=== PATIENT | female | born 1965 | race Two or more races ===

== ENCOUNTER 2023-07-22 05:33 | Day surgery (SDC) | payer OTHER ==
[~2023-07-22 05:33] MED LIST: ADULT LOW DOSE81 M1 PO; COZAAR25 MG PO; PEPCID AC20 MG PO; VISTARIL50 MG PO
== END 2023-07-22 12:05 | disposition home or self-care (01) ==
LOC: CIR.AMB 05:33
PROVIDERS: ATTEND Surgery Surgery of the Hand
DX: M19.041 Primary osteoarthritis, right hand (principal); Z88.0 Allergy status to penicillin; Z20.822 Contact with and (suspected) exposure to COVID-19

== ENCOUNTER 2024-06-01 06:07 | Day surgery (SDC) | payer OTHER ==
[2024-05-25 11:29] LABS: PH,URINE 5.5 (5.0-8.0); URINE APPEARANCE Clear; URINE BILIRRUBIN Negative (NEGATIVE); URINE BLOOD Small; URINE COLOR Yellow; URINE GLUCOSE Negative (NEGATIVE); URINE KETONE Trace (NEGATIVE); URINE LEUKOCYTE Negative; URINE NITRATE Negative; URINE PROTEIN Negative (NEGATIVE); URINE UROBILINOGEN 0.2 E.U./dl
[2024-05-25 11:32] LABS: HEMATOCRIT 35.3 % (36.0-45.00); HEMOGLOBIN 11.9 g/dL (12.0-15.00); MEAN CELL VOLUME 82.4 fL (80.00-100.00); MEAN CORPUSCULAR HEMOGLOBIN 27.8 pg (27.00-32.0); MEAN CORPUSCULAR HGB CONC 33.7 g/dl (32.0-36.0); PLATELET COUNT 316 K/uL (150-450); RED BLOOD COUNT 4.29 M/uL (4.00-6.00); RED CELL DISTRIBUTION WIDTH 14.4 % (11.5-14.5)
[2024-05-25 11:33] LABS: URINE BACTERIA 6.2 uL (0.0-1933); URINE EPITHELIAL CELLS 2.6 uL (0.0-38.8); URINE RBC 24.7 uL (0.0-20.8)
[2024-05-25 11:48] LABS: CALCIUM 9.3 mg/dL (8.5-10.1); CREATININE SERUM 0.67 mg/dL (0.55-1.02); GFR 90.09; POTASSIUM 3.77 mEq/L (3.5-5.1)
[2024-05-25 11:51] LABS: PARTIAL THROMBOPLASTIN TIME 32.8 SECONDS (22.0-34.0); PROTHROMBIN TIME 10.9 SECONDS (9.0-11.5)
[2024-05-25 12:03] LABS: URINE CAST 0.15 uL (0.0-1.40)
[~2024-06-01 06:07] MED LIST changes: +PROTONIX IV40 MG; +ZOLOFT50 MG; +klonopin
[2024-06-01] MEDS ORDERED: CLINDAMYCIN PHOSPHATE 150 MG/ML (900mg) ONE (08:44)
[2024-06-01] MEDS ORDERED: LIDOCAINE HCL 1%/EPINEPHRINE 20ML VIAL IJ ONE ×2 (10:49→11:15)
[2024-06-01] MEDS ORDERED: CLINDAMYCIN PHOSPHATE 150 MG/ML (900mg) IV ONE (11:15)
[2024-06-01] MEDS ORDERED: BUPIVACAINE HCL/Mpf 0.5% 10ML VIAL ONE (12:11)
[2024-06-01] MEDS ORDERED: BUPIVACAINE HCL/PF 0.25% 30ML VIAL InF ONE (12:30)
[2024-06-02] MEDS ORDERED: KETO10TA2 PO (20:10)
== END 2024-06-01 15:25 | disposition home or self-care (01) ==
LOC: CIR.AMB 06:07
PROVIDERS: ATTEND Surgery Surgery of the Hand
DX: M19.042 Primary osteoarthritis, left hand (principal)

== ENCOUNTER 2024-06-02 18:32 | Emergency (ER) | payer OTHER ==
[~2024-06-02] VITALS: Ht 167.6 cm; Wt 73.5 kg
[2024-06-02] MEDS ORDERED: KETOROLAC TROMETHAMINE 60 MG VIAL IM ONE ×2 (19:15)
[2024-06-02] MEDS ORDERED: OxyCODONE HCL/APAP UD (PERCOCET) PO ONE (19:15)
[2024-06-02] MEDS ORDERED: DIPHENHYDRAMINE HCL 50 MG/ML VIAL 1ML ONE (20:06)
[2024-06-02] MEDS ORDERED: KETO10TA2 PO (20:10)
[2024-06-02] MEDS ORDERED: DIPHENHYDRAMINE HCL 50 MG/ML VIAL 1ML IM ONE (20:15)
== END 2024-06-02 21:14 | disposition home or self-care (01) ==
LOC: ER 18:33
DX: M79.644 Pain in right finger(s) (principal); I10 Essential (primary) hypertension; Z88.0 Allergy status to penicillin